=== PATIENT | female | born 1990 | race Caucasian/White ===

== ENCOUNTER 2021-11-30 10:49 | Emergency (ER) | payer OTHER ==
[2021-11-30 12:01] LABS: #Basophils 0.1 10x3/uL (0.0-0.2); #Eosinphils 0.3 10x3/uL (0.0-0.5); #Monocytes 0.6 10x3/uL (0.0-1.1); #Neutrophils 7.5 10x3/uL (1.5-8.4); %Basophils 0.8 % (0.0-2.0); %Eosinophils 3.1 % (0.0-6.0); %Lymphocytes 12.7 % (18.0-47.0); %Monocytes 6.3 % (0.0-10.0); %Neutrophils 76.9 % (40.0-75.0); Hemoglobin 11.9 g/dL (12.0-15.5); Mean Corpuscular HGB CONC 31.7 g/dL (32.0-36.0); Mean Corpuscular Hemoglobin 26.8 pg (27.0-33.0); Mean Corpuscular Volume 84.5 fl (81.6-98.3); Mean Platelet Volume 9.8 fl (7.4-10.4); Platelet Count 433 10x3/uL (150-450); RBC Distribution Width 14.6 % (11.5-14.5); Red Blood Cell (RBC) Count 4.44 10x6/uL (3.90-5.03); White Blood Cell (WBC) Count 9.7 10x3/uL (3.5-10.5)
[2021-11-30 12:28] LABS: ALT (SGPT) 19 U/L (8-55); AST (SGOT) 24 U/L (5-34); Albumin 4.8 g/dL (3.5-5.0); Alkaline Phosphatase 97 U/L (40-110); Anion Gap 16 mmol/L (10-20); BUN (Urea Nitrogen) 8 mg/dL (7.0-18.7); Bilirubin, Total 0.4 mg/dL (0.2-1.2); Calc. Creatinine Clearance 0 mL/min (70-130); Calcium 9.6 mg/dL (7.8-10.44); Carbon Dioxide 26 mmol/L (22-29); Chloride 104 mmol/L (98-107); Estimated GFR 110; Globulin 3.2 g/dL (2.4-3.5); Glucose 108 mg/dL (70-105); Lipase 19 U/L (8-78); Potassium 4.8 mmol/L (3.5-5.1); Sodium 141 mmol/L (136-145)
== END 2021-11-30 13:27 | disposition home or self-care (01) ==
LOC: CSHERS 10:49
DX: R55 Syncope and collapse (principal)
CPT/HCPCS: 36415; 71045; 80053; 83690; 84484; 85025; 93005

== ENCOUNTER 2023-11-16 10:41 | Emergency (ER) | payer OTHER ==
[2023-11-16 11:10] LABS: #Basophils 0.05 10x3/uL (0.0-0.2); #Eosinophils 0.11 10x3/uL (0.0-0.5); #Monocytes 0.86 10x3/uL (0.0-1.1); %Basophils 0.5 % (0.0-2.0); %Eosinophils 1.1 % (0.0-6.0); %Lymphocytes 20.8 % (18.0-47.0); %Monocytes 8.9 % (0.0-10.0); %Neutrophils 68.4 % (40.0-75.0); Hematocrit 40.8 % (34.9-44.5); Mean Corpuscular HGB CONC 31.9 g/dL (32.0-36.0); Mean Corpuscular Hemoglobin 29.1 pg (27.0-33.0); Mean Corpuscular Volume 91.5 fL (81.6-98.3); Mean Platelet Volume 9.4 fL (7.4-10.4); Platelet Count 319 10x3/uL (150-450); Red Blood Cell (RBC) Count 4.46 10x6/uL (3.90-5.03); White Blood Cell (WBC) Count 9.7 10x3/uL (3.5-10.5)
[2023-11-16 11:17] LABS: BHCG - Serum Negative (NEGATIVE); Pregs Control Background? CLEAR/WHITE (CLR/WHITE); Pregs Control Bar Appear? YES (CONTROL BAR)
[2023-11-16 11:25] LABS: ALT (SGPT) 15 U/L (8-55); AST (SGOT) 20 U/L (5-34); Alkaline Phosphatase 71 U/L (40-110); Anion Gap 15 mmol/L (10-20); BUN (Urea Nitrogen) 6 mg/dL (7.0-18.7); Bilirubin, Total 0.5 mg/dL (0.2-1.2); Calc. Creatinine Clearance 0 mL/min (70-130); Calcium 9.5 mg/dL (7.8-10.44); Carbon Dioxide 23 mmol/L (22-29); Chloride 104 mmol/L (98-107); Estimated GFR 114; Globulin 3.5 g/dL (2.4-3.5); Glucose 96 mg/dL (70-105); Potassium 4.1 mmol/L (3.5-5.1); Protein, Total 7.5 g/dL (6.0-8.3); Sodium 138 mmol/L (136-145)
[2023-11-16 11:48] LABS: INR-International Normal Ratio 0.9; Prothrombin Time 10.3 sec (9.5-12.1)
[2023-11-16] MEDS ORDERED: Tranexamic Acid 1,000 MG/10 ML VIAL ONE (13:24)
[2023-11-16] MEDS ORDERED: Ondansetron PF 4 MG/2 ML Vial ONE (13:50)
[2023-11-16 14:54] LABS: Bilirubin Neg (Negative); Blood, Urine 250 (Negative); Glucose, Urine (Dipstick) Normal (Negative); Ketone, Urine 50 mg/dL (Negative); Leukocyte Negative (Negative); Nitrite Negative (Negative); Protein, Urine (Dipstick) 15 mg/dl (Neg-Trace); Urobilinogen Normal mg/dL (Less than 2)
[2023-11-16 14:57] LABS: Clarity Clear (Clear)
[2023-11-16 15:09] LABS: CAUTI Indications for Culture Pelvic or flank pain; RBC/HPF Greater than 50 HPF (0-3); Squamous Epithelial 0-3 HPF (0-3)
[2023-11-16 15:10] LABS: Bacteria/HPF 1+ HPF (None Seen)
[2023-11-16 15:12] LABS: Urine Culture Reflex No No
== END 2023-11-16 15:30 | disposition home or self-care (01) ==
LOC: CSHERS 10:41
DX: N92.0 Excessive and frequent menstruation with regular cycle (principal); D21.9 Benign neoplasm of connective and other soft tissue, unspecified; Z55.6 Problems related to health literacy
CPT/HCPCS: 36415; 76856; 80053; 81001; 84703; 85025; 85610; 85730; 96374; 96375; J2405

== ENCOUNTER 2023-12-30 12:42 | Emergency (ER) | payer OTHER ==
[2023-12-30 13:44] LABS: #Basophils 0.04 10x3/uL (0.0-0.2); #Eosinophils 0.11 10x3/uL (0.0-0.5); #Monocytes 0.75 10x3/uL (0.0-1.1); #Neutrophils 8.53 10x3/uL (1.5-8.4); %Basophils 0.4 % (0.0-2.0); %Lymphocytes 12.2 % (18.0-47.0); Hematocrit 43.1 % (34.9-44.5); Hemoglobin 14.2 g/dL (12.0-15.5); Mean Corpuscular HGB CONC 32.9 g/dL (32.0-36.0); Mean Corpuscular Hemoglobin 30.3 pg (27.0-33.0); Mean Corpuscular Volume 91.9 fL (81.6-98.3); Mean Platelet Volume 10.2 fL (7.4-10.4); Platelet Count 312 10x3/uL (150-450); RBC Distribution Width 12.8 % (11.5-14.5); Red Blood Cell (RBC) Count 4.69 10x6/uL (3.90-5.03); White Blood Cell (WBC) Count 10.8 10x3/uL (3.5-10.5)
[2023-12-30 13:54] LABS: BHCG - Serum Negative (NEGATIVE); Pregs Control Background? CLEAR/WHITE (CLR/WHITE); Pregs Control Bar Appear? YES (CONTROL BAR)
[2023-12-30] MEDS ORDERED: Tranexamic Acid 1,000 MG/10 ML VIAL ONE (13:55)
[2023-12-30 13:56] LABS: PTT 27.4 sec (22.0-33.0); Prothrombin Time 10.5 sec (9.5-12.1)
[2023-12-30 13:59] LABS: ALT (SGPT) 18 U/L (8-55); AST (SGOT) 18 U/L (5-34); Albumin 4.4 g/dL (3.5-5.0); Alkaline Phosphatase 55 U/L (40-110); Anion Gap 17 mmol/L (10-20); BUN (Urea Nitrogen) 5 mg/dL (7.0-18.7); Bilirubin, Total 0.4 mg/dL (0.2-1.2); Calc. Creatinine Clearance 0 mL/min (70-130); Calcium 10.3 mg/dL (7.8-10.44); Carbon Dioxide 24 mmol/L (22-29); Chloride 104 mmol/L (98-107); Estimated GFR 111; Glucose 110 mg/dL (70-105); Potassium 4.2 mmol/L (3.5-5.1); Protein, Total 8.4 g/dL (6.0-8.3); Sodium 141 mmol/L (136-145)
== END 2023-12-30 17:30 | disposition home or self-care (01) ==
LOC: CSHERS 12:42
DX: N93.9 Abnormal uterine and vaginal bleeding, unspecified (principal)
CPT/HCPCS: 36415; 76856; 80053; 84703; 85025; 85610; 85730; 86850; 86900; 86901

== ENCOUNTER 2024-04-03 06:35 | Observation (INO) | payer OTHER ==
[2024-03-31 13:50] VITALS: BMI 23.1
[2024-04-03] MEDS ORDERED: PROPOFOL 20 ML ONE (07:41)
[2024-04-03] MEDS ORDERED: Lidocaine 4% PF 5 ML AMP ONE (07:41)
[2024-04-03] MEDS ORDERED: Rocuronium Bromide 10 MG/ML (10ML VIAL) ONE (07:41)
[2024-04-03] MEDS ORDERED: Lidocaine 2% PF 5 ML VIAL ONE (07:41)
[2024-04-03] MEDS ORDERED: Bupivacaine HCl 0.5%/Epinephrine 1:200,000/PF 30 ml Vial ONE (08:04)
[2024-04-03] MEDS ORDERED: Fentanyl 100 MCG/2 ML VIAL ONE ×4 (08:20→11:03)
[2024-04-03] MEDS ORDERED: Methylene Blue 50 MG/10 ML AMPUL ONE (08:24)
[2024-04-03] MEDS ORDERED: CEFAZOLIN 2 GM VIAL ONE (08:27)
[2024-04-03] MEDS ORDERED: Scopolamine 1 mg/72 hour Patch ONE (08:29)
[2024-04-03] MEDS ORDERED: Midazolam HCl 2 mg/2 ml Vial ONE (08:29)
[2024-04-03] MEDS ORDERED: Ondansetron PF 4 MG/2 ML Vial ONE ×2 (08:49→12:04)
[2024-04-03] MEDS ORDERED: Dexamethasone 4 mg/ml Vial ONE (08:49)
[2024-04-03] MEDS ORDERED: Dexmedetomidine 200 MCG/2 ML VIAL ONE (09:11)
[2024-04-03] MEDS ORDERED: Ketorolac Tromethamine 30 MG (1 mL) VIAL ONE ×2 (09:39→16:04)
[2024-04-03] MEDS ORDERED: SUGAMMADEX SODIUM 200 MG/2 ML VIAL ONE (10:10)
[2024-04-03] MEDS ORDERED: Meperidine HCl/PF 25 MG (1 mL) VIAL ONE (11:37)
[2024-04-03] MEDS ORDERED: HYDROcodone/Acetaminophen 5/325 mg Tablet ONE (13:05)
[2024-04-03 13:41] LABS: Hematocrit 33.8 % (34.9-44.5); Hemoglobin 11.3 g/dL (12.0-15.5); Mean Corpuscular HGB CONC 33.4 g/dL (32.0-36.0); Mean Corpuscular Volume 92.9 fL (81.6-98.3); Mean Platelet Volume 10.3 fL (7.4-10.4); Platelet Count 254 10x3/uL (150-450); Red Blood Cell (RBC) Count 3.64 10x6/uL (3.90-5.03); White Blood Cell (WBC) Count 11.76 10x3/uL (3.5-10.5)
[2024-04-03] MEDS ORDERED: Morphine 2 MG/ML VIAL ONE ×2 (15:18→15:19)
[2024-04-03] MEDS ORDERED: Acetaminophen 325 MG TAB PO PRN (18:41)
[2024-04-03] MEDS ORDERED: Ondansetron PF 4 MG/2 ML Vial IVP PRN (18:42)
[2024-04-03] MEDS ORDERED: diphenhydrAMINE 50 MG/ML VIAL IVP PRN (18:43)
[2024-04-03] MEDS ORDERED: diphenhydrAMINE 25 MG CAP PO PRN (18:43)
[2024-04-03] MEDS: Morphine 4 MG/ML VIAL SLOW IVP PRN (20:06)
[2024-04-03] MEDS: Ketorolac Tromethamine 30 MG (1 mL) VIAL IVP SCH (21:35)
[2024-04-04] MEDS: HYDROcodone/Acetaminophen 7.5/325 mg Tablet PO PRN (07:20)
[2024-04-04 11:46] VITALS: BP 113/66; TEMP 98
== END 2024-04-04 13:00 | disposition home or self-care (01) ==
LOC: CSHSDC 06:35 → CSHTELE 15:37
PROVIDERS: ADMIT Obstetrics & Gynecology; ATTEND Obstetrics & Gynecology
PROC: 0UT94ZZ Resection of Uterus, Percutaneous Endoscopic Approach (ICD-10-PCS; principal; 2024-04-03)
PROC: 0UT74ZZ Resection of Bilateral Fallopian Tubes, Percutaneous Endoscopic Approach (ICD-10-PCS; 2024-04-03)
PROC: 0U5B8ZZ Destruction of Endometrium, Via Natural or Artificial Opening Endoscopic (ICD-10-PCS; 2024-04-03)
DX: D25.1 Intramural leiomyoma of uterus (principal); N73.6 Female pelvic peritoneal adhesions (postinfective); K66.0 Peritoneal adhesions (postprocedural) (postinfection); N80.329 Endometriosis of the posterior cul-de-sac, unspecified depth; N80.3C1 Endometriosis of the right uterosacral ligament, unspecified depth; N80.352 Endometriosis of the left pelvic sidewall, unspecified depth; N80.202 Endometriosis of left fallopian tube, unspecified depth; N80.102 Endometriosis of left ovary, unspecified depth; N83.8 Other noninflammatory disorders of ovary, fallopian tube and broad ligament; F41.9 Anxiety disorder, unspecified; L40.9 Psoriasis, unspecified; Z91.011 Allergy to milk products; Z91.018 Allergy to other foods; Z79.899 Other long term (current) drug therapy
CPT/HCPCS: 36415; 85027; 88307; C1889; J1100; J1885; J2175; J2250; J2270; J2272; J2405; J2704; J3010; S2900